=== PATIENT | female | born 1945 | race African-American/Black ===

== ENCOUNTER 2021-11-22 06:25 | Inpatient (IN) ==
[2021-11-22] MEDS ORDERED: CeFAZolin Syr 2,000MG/20 ML 2,000 MG/20 ML SYRINGE IVPB ONE (06:58)
[2021-11-22] MEDS ORDERED: Protamine Sulfate 50 MG/5 ML VIAL IVP ONE (06:59)
[2021-11-22] MEDS ORDERED: Bupivacaine-MPF 0.25% 10 ML VIAL ONE (06:59)
[2021-11-22] MEDS ORDERED: Heparin 1,000 UNITS/500 mL 500 ML ONE ×2 (06:59→07:22)
[2021-11-22] MEDS ORDERED: Ringers Solution, Lactated 1,000 ML IVC SCH (07:00)
[2021-11-22] MEDS ORDERED: Ondansetron 4 MG/2 ML VIAL ONE (07:14)
[2021-11-22] MEDS ORDERED: Lidocaine -MPF 2% 2 ML VIAL ONE (07:14)
[2021-11-22] MEDS ORDERED: *HR* Rocuronium Bromide 50 MG/5 ML VIAL ONE (07:14)
[2021-11-22] MEDS ORDERED: *HR* FentaNYL (PF) 100 MCG/2 ML VIAL ONE ×2 (07:14→08:38)
[2021-11-22] MEDS ORDERED: *HR* Propofol 200 MG/20 ML VIAL IVP ONE ×2 (07:15→09:35)
[2021-11-22] MEDS ORDERED: *HR* Succinylcholine 200 MG/10 ML VIAL IVP ONE (07:15)
[2021-11-22] MEDS ORDERED: Famotidine 20 MG/2 ML VIAL IVP ONE (07:19)
[2021-11-22] MEDS ORDERED: Ondansetron 4 MG/2 ML VIAL IVP PRN ×3 (07:19→12:12)
[2021-11-22] MEDS ORDERED: *HR* HYDROmorphone 2 MG TABLET PO PRN (07:19)
[2021-11-22] MEDS ORDERED: *HR* HYDROmorphone (PF) 1 MG/ML SYRINGE IVP PRN (07:19)
[2021-11-22] MEDS ORDERED: Acetaminophen IV 1,000 MG/100 ML BAG IVPB ONE ×2 (07:19→07:30)
[2021-11-22] MEDS ORDERED: *HR* Labetalol 20 MG/4 ML SYRINGE IVP PRN ×3 (07:19→12:12)
[2021-11-22] MEDS ORDERED: *HR* OxyCODONE Immed Rel 5 MG TABLET PO PRN ×3 (07:19→12:12)
[2021-11-22] MEDS ORDERED: EPINEPHrine 1 MG/ML VIAL ONE (07:20)
[2021-11-22] MEDS ORDERED: *HR* Phenylephrine 10 MG/ML VIAL ONE (07:20)
[2021-11-22] MEDS ORDERED: NiCARdipine 2.5 MG/10 ML Syringe IVPB ONE (07:32)
[2021-11-22] MEDS ORDERED: niCARdipine 0 MG/0 ML MLS IVC ONE (07:34)
[2021-11-22] MEDS ORDERED: Vancomycin 1,000 MG, Sodium Chloride IRRigation 1,000 ML IR ONE (07:45)
[2021-11-22] MEDS ORDERED: *HR* Vasopressin 20 UNIT/ML VIAL ONE (07:49)
[2021-11-22] MEDS ORDERED: *HR* Heparin 5,000 UNIT/ML VIAL ONE ×2 (09:03→09:04)
[2021-11-22] MEDS ORDERED: Sugammadex Sodium 200 MG/2 ML VIAL IV ONE (10:13)
[2021-11-22] MEDS ORDERED: Acetaminophen 325 MG TABLET PO PRN ×2 (10:31→12:12)
[2021-11-22] MEDS ORDERED: Naloxone 0.4 MG/ML INJ IVP PRN ×2 (10:31→12:12)
[2021-11-22] MEDS ORDERED: *HR* HYDROcodone/Acet 5/325 mg TABLET PO PRN ×2 (10:31→12:12)
[2021-11-22] MEDS ORDERED: 0.9 % Sodium Chloride 1,000 ML IVC SCH ×2 (10:45→12:12)
[2021-11-22] MEDS ORDERED: *HR* Metoprolol 5 MG/5 ML VIAL IVP SCH (12:00)
[2021-11-22] MEDS ORDERED: CeFAZolin 2 GM/120 ML BAG IVPB SCH ×2 (16:00)
[2021-11-22] MEDS: CeFAZolin 2 GM/120 ML BAG IVPB SCH (16:33)
[2021-11-22] MEDS: *HR* Metoprolol 5 MG/5 ML VIAL IVP SCH (17:10)
[2021-11-22] MEDS ORDERED: Latanoprost 2.5 ML BOTTLE BOTH EYES SCH (21:00)
[2021-11-23] MEDS: CeFAZolin 2 GM/120 ML BAG IVPB SCH (00:29)
[2021-11-23] MEDS: *HR* Metoprolol 5 MG/5 ML VIAL IVP SCH ×3 (00:30→06:28)
[2021-11-23 02:58] VITALS: PULSE 61
[2021-11-23] MEDS ORDERED: *HR* Heparin 5,000 UNIT/ML VIAL SQ SCH ×2 (06:00)
[2021-11-23 07:37] VITALS: BP 134/60; TEMP 98.1; O2SAT 93
[2021-11-23] MEDS ORDERED: NON-FORMULARY MEDICATION 1 EACH EACH (Multivitamin [One Daily Multivitamin] 1 EACH Tablet) PO SCH (09:00)
[2021-11-23] MEDS ORDERED: hydroCHLOROthiazide 25 MG TABLET PO SCH (09:00)
[2021-11-23] MEDS ORDERED: Cholecalciferol (D-3) 1,000 UNIT (25MCG) TABLET PO SCH (09:00)
[2021-11-23] MEDS ORDERED: Aspirin Enteric Coated 81 MG Tablet PO SCH (09:00)
[2021-11-23] MEDS ORDERED: lisinopriL 20 MG TABLET PO SCH (09:00)
[2021-11-23] MEDS ORDERED: Vitamin B Complex/Vit C/Vit E 1 EACH TABLET PO SCH (09:00)
== END 2021-11-23 12:13 | disposition home or self-care (01) | DRG 39 ==
LOC: SAMDAY 06:25 → 2NNU 11:47
PROVIDERS: ADMIT Surgery; ATTEND Surgery